=== PATIENT | male | born 1965 | race African-American/Black ===

== ENCOUNTER 2017-02-05 12:15 | Emergency (ER) | payer OTHER ==
[~2017-02-05] VITALS: Ht 180.3 cm; Wt 100.0 kg
[~2017-02-05 12:15] MED LIST: GLUCTES27 SQ; LISI-515 PO; METF1000 PO
[2017-02-05 12:17] VITALS: BP 147/89; PULSE 105; RESP 20; TEMP 99; O2SAT 94
[2017-02-05] MEDS ORDERED: ALUMINUM/MAGNESIUM/SIMETH 30 ML CUP PO ONE (12:45)
[2017-02-05] MEDS ORDERED: LIDOCAINE VISCOUS 2% SOLN 15 ML UDC PO ONE (12:45)
[2017-02-05] MEDS ORDERED: PENICILLIN G BENZATHINE 1,200,000 UNITS/2 ML SYRINGE IM ONE (12:45)
--- NOTE | 2017-02-05 12:57 | PD ---
HPI Chief Complaint: ENT Complaint Time Seen by Provider: 12:25 Travel History International Travel<30 days: No Contact w/Intl Traveler<30days: No Traveled to known affect area: No History of Present Illness HPI 51-year-old male complains of sore throat, cough and hemoptysis. Subjective fever reported. He reports prior episodes of strep throat felt similar. No shortness of breath or chest pain. He reports trace spicules of blood in the sputum. No abdominal pain. No sick contacts at home. Pt reports receiving an influenza shot this morning. PFSH Past Medical History Cardiovascular Problems: Yes Diabetes: Yes Social History Tobacco Use: No Allergies-Medications (Allergen,Severity, Reaction): Coded Allergies: No Known Allergies (Unverified Adverse Reaction, Unknown, 02/05/17) Reported Meds & Prescriptions Reported Meds & Active Scripts Active Elizabeth Contour Next Blood (Glucose Blood) 1 Tamiko Tamiko 1 Units SQ DAILY Lisinopril 20 Mg Tab 20 Mg PO DAILY Metformin (Metformin HCl) 1,000 Mg Tab 1,000 Mg PO BIDPC With meals Review of Systems Except as stated in HPI: all other systems reviewed are Neg General / Constitutional: No: Fever Physical Exam Narrative GENERAL: 51 yo M, pleasant, occasional cough with clear sputum SKIN: Warm and dry. HEAD: Atraumatic. Normocephalic. EYES: Pupils equal and round. No scleral icterus. No injection or drainage. ENT: No nasal bleeding or discharge. Mucous membranes pink and moist. Erythema without asymmetry or deviation of soft palate. NECK: Trachea midline. No JVD. Minimal anterior neck adenopathy. CARDIOVASCULAR: Regular. Rate in 90s. RESPIRATORY: No accessory muscle use. Clear to auscultation. Breath sounds equal bilaterally. GASTROINTESTINAL: Abdomen soft, non-tender, nondistended. Hepatic and splenic margins not palpable. MUSCULOSKELETAL: Extremities without clubbing, cyanosis, or edema. No obvious deformities. NEUROLOGICAL: Awake and alert. No obvious cranial nerve deficits. Motor grossly within normal limits. Five out of 5 muscle strength in the arms and legs. Normal speech. PSYCHIATRIC: Appropriate mood and affect; insight and judgment normal. Data Data Last Documented VS Vital Signs Date Time Temp Pulse Resp B/P (MAP) Pulse Ox O2 Delivery O2 Flow Rate FiO2 02/05/17 12:17 99.0 105 20 147/89 (108) 94 Room Air VS reviewed Orders Orders Penicillin G Benzathine Inj (Bicillin L- (02/05/17 12:45) Al-Mag Hy-Si 40-40-4 Mg/Ml Liq (Mag-Al P (02/05/17 12:45) Lidocaine 2% Viscous (Xylocaine 2% Visco (02/05/17 12:45) Ed Discharge Order (02/05/17 12:58) MDM Medical Decision Making Medical Screen Exam Complete: Yes Emergency Medical Condition: Yes Differential Diagnosis strep pharyngitis, viral pharyngitis, pna, influenza Narrative Course bicillin injection viscous lidocaine return precautions discussed Diagnosis Primary Impression: Pharyngitis Qualified Codes: J02.9 - Acute pharyngitis, unspecified Referrals: Primary Care Physician 2 days Med/Other Pt SpecificInfo: No Change to Meds Disposition: 01 DISCHARGE HOME Condition: Festus Contreras MD Feb 05, 2017 12:57
== END 2017-02-05 13:24 | disposition home or self-care (01) ==
LOC: NEPD 12:15
DX: J02.9 Acute pharyngitis, unspecified (principal); E11.9 Type 2 diabetes mellitus without complications; Z79.84 Long term (current) use of oral hypoglycemic drugs
CPT/HCPCS: 96372; 99282; J0561

== ENCOUNTER 2017-02-07 04:43 | Emergency (ER) | payer OTHER ==
[~2017-02-07] VITALS: Ht 180.3 cm; Wt 102.0 kg
[2017-02-07 04:46] VITALS: BP 155/93; PULSE 90; RESP 16; TEMP 99.4; O2SAT 96
[2017-02-07 04:59] VITALS: BP 145/90; PULSE 83; RESP 16; TEMP 100; O2SAT 97
[2017-02-07] MEDS ORDERED: SODIUM CHLOR 0.9% 1000 ML INJ 1,000 ML IV ONE (05:45)
[2017-02-07] MEDS ORDERED: IBUPROFEN 800 MG TAB PO ONE (05:45)
[2017-02-07 06:02] LABS: AUTOMATED NEUTROPHIL # 6.4 TH/MM3 (1.8-7.7); BASOPHIL # 0.1 TH/MM3 (0-0.2); BASOPHIL % 0.8 % (0.0-2.0); EOSINOPHIL # 0.1 TH/MM3 (0-0.4); EOSINOPHIL % 0.5 % (0.0-4.0); HEMATOCRIT 44.3 % (39.0-51.0); HEMOGLOBIN 14.8 GM/DL (13.0-17.0); LYMPH % 29.7 % (9.0-44.0); LYMPHOCYTE # 3.1 TH/MM3 (1.0-4.8); MEAN CELL VOLUME 88.6 FL (80.0-100.0); MEAN CORPUSCULAR HEMOGLOBIN 29.5 PG (27.0-34.0); MEAN CORPUSCULAR HGB CONC 33.4 % (32.0-36.0); MEAN PLATELET VOLUME 8.9 FL (7.0-11.0); MONO % 8.3 % (0.0-8.0); MONOCYTE # 0.9 TH/MM3 (0-0.9); NEUT % 60.7 % (16.0-70.0); PLATELET COUNT 190 TH/MM3 (150-450); RED CELL DISTRIBUTION WIDTH 13.2 % (11.6-17.2); WHITE BLOOD COUNT 10.5 TH/MM3 (4.0-11.0)
[2017-02-07 06:18] LABS: BICARBONATE 28.9 MEQ/L (21.0-32.0); CALCIUM 8.5 MG/DL (8.5-10.1); CREATININE 0.8 MG/DL (0.60-1.30)
[2017-02-07] MEDS ORDERED: LIDOCAINE VISCOUS 2% SOLN 15 ML UDC SWISH-SWAL STA (06:32)
[2017-02-07] MEDS ORDERED: MAGICADU2 SWISH-SWAL (06:35)
--- NOTE | 2017-02-07 06:41 | PD ---
HPI Chief Complaint: ENT Complaint Time Seen by Provider: 05:36 Travel History International Travel<30 days: No Contact w/Intl Traveler<30days: No Traveled to known affect area: No History of Present Illness HPI 51-year-old black male presents from her apartment with 3-4 day history of fever and chills. He also goes on to state that he was seen in the ER the last 24 hours because of severe sore throat, cough, congestion, bloody sputum, myalgias, arthralgias Gen. malaise. He was given a shot of penicillin and was told to return to the ER if symptoms do not start to improve. He states that his pain is been persistent and he cannot rest. He has had difficulty swallowing. He denies any shortness of breath or wheezing. No nausea vomiting. No abdominal pain. Symptoms are moderate but can be severe. Patient denies any nausea, vomiting or diarrhea. No abdominal pain. PFSH Past Medical History Cardiovascular Problems: Yes Diabetes: Yes Patient Takes Glucophage: Yes (02/05/2017 @ 0900) Hypertension: Yes Tetanus Vaccination: < 5 Years Influenza Vaccination: Yes Past Surgical History Surgical History: No Previous Surgery Social History Alcohol Use: Yes Tobacco Use: Yes Substance Use: No Allergies-Medications (Allergen,Severity, Reaction): Coded Allergies: No Known Allergies (Unverified Adverse Reaction, Unknown, 02/07/17) Reported Meds & Prescriptions Reported Meds & Active Scripts Active Magic Mouthwash Adult Liq (Multi-Ingredient Mouthwash/Gargle) 120 Ml Susp 5 Ml SWISH-SWAL ACHS Each 5mL contains: Nystatin 200,000units, Diphenhydramine 4.25mg, Viscous Lidocaine 10mg, Guzmán syrup 0.8 mL Elizabeth Contour Next Blood Test Strips (Blood Glucose Test Strips) 1 Tamiko Tamiko 1 Units SQ DAILY Lisinopril 20 Mg Tab 20 Mg PO DAILY Metformin (Metformin HCl) 1,000 Mg Tab 1,000 Mg PO BIDPC With meals Review of Systems Except as stated in HPI: all other systems reviewed are Neg Physical Exam Narrative GENERAL: Well-developed, well-nourished in no acute distress. Nontoxic appearing. HEAD: Normocephalic, atraumatic. EYES: Pupils equal round and reactive. Extraocular motions intact. No scleral icterus. No injection or drainage. ENT: TMs clear without erythema. The external auditory canals clear. Nose: clear . Posterior pharynx is erythematous and edematous and moist. No tonsillar edema or exudate. Uvula midline. Airway patent. NECK: Trachea midline.Supple, nontender, moves head freely. No central bony tenderness or spasm. CARDIOVASCULAR: Regular rate and rhythm without murmurs, gallops, or rubs. RESPIRATORY: Clear to auscultation. Breath sounds equal bilaterally. No wheezes , rales, or rhonchi. GASTROINTESTINAL: Abdomen soft, non-tender, nondistended. No hepato-splenomegaly , or palpable masses. No guarding. EXTREMITIES: No clubbing, cyanosis, or edema. No joint tenderness, effusion, or edema noted. BACK: Nontender without deformity or crepitance. No flank tenderness. Data Data Last Documented VS Vital Signs Date Time Temp Pulse Resp B/P (MAP) Pulse Ox O2 Delivery O2 Flow Rate FiO2 02/07/17 04:59 100.0 83 16 145/90 (108) 97 Room Air Orders Orders Complete Blood Count With Diff (02/07/17 05:39) Basic Metabolic Panel (Bmp) (02/07/17 05:39) Chest, Pa & Lat (02/07/17 05:39) Iv Access Insert/Monitor (02/07/17 05:39) Sodium Chlor 0.9% 1000 Ml Inj (Ns 1000 M (02/07/17 05:45) Ibuprofen (Motrin) (02/07/17 05:45) Acetaminophen (Tylenol) (02/07/17 06:45) Lidocaine 2% Viscous (Xylocaine 2% Visco (02/07/17 06:32) Al-Mag Hy-Si 40-40-4 Mg/Ml Liq (Mag-Al P (02/07/17 06:45) Ed Discharge Order (02/07/17 06:33) Labs Laboratory Tests Test 02/07/17 05:50 White Blood Count 10.5 TH/MM3 Red Blood Count 5.00 MIL/MM3 Hemoglobin 14.8 GM/DL Hematocrit 44.3 % Mean Corpuscular Volume 88.6 FL Mean Corpuscular Hemoglobin 29.5 PG Mean Corpuscular Hemoglobin Concent 33.4 % Red Cell Distribution Width 13.2 % Platelet Count 190 TH/MM3 Mean Platelet Volume 8.9 FL Neutrophils (%) (Auto) 60.7 % Lymphocytes (%) (Auto) 29.7 % Monocytes (%) (Auto) 8.3 % Eosinophils (%) (Auto) 0.5 % Basophils (%) (Auto) 0.8 % Neutrophils # (Auto) 6.4 TH/MM3 Lymphocytes # (Auto) 3.1 TH/MM3 Monocytes # (Auto) 0.9 TH/MM3 Eosinophils # (Auto) 0.1 TH/MM3 Basophils # (Auto) 0.1 TH/MM3 CBC Comment DIFF FINAL Differential Comment Blood Urea Nitrogen 10 MG/DL Creatinine 0.80 MG/DL Random Glucose 211 MG/DL Calcium Level 8.5 MG/DL Sodium Level 141 MEQ/L Potassium Level 3.2 MEQ/L Chloride Level 104 MEQ/L Carbon Dioxide Level 28.9 MEQ/L Anion Gap 8 MEQ/L Estimat Glomerular Filtration Rate 123 ML/MIN MDM Medical Decision Making Medical Screen Exam Complete: Yes Emergency Medical Condition: Yes Medical Record Reviewed: Yes Interpretation(s) Chest x-ray: Negative for acute infiltrate. CBC & BMP Diagram 02/07/17 05:50 Calcium Level 8.5 Laboratory Tests Test 02/07/17 05:50 Monocytes (%) (Auto) 8.3 % (0.0-8.0) Random Glucose 211 MG/DL (74-106) Potassium Level 3.2 MEQ/L (3.5-5.1) Differential Diagnosis MDM: High Differential diagnoses: Strep throat, viral pharyngitis, mono, peritonsillar abscess, bronchitis, pneumonia Narrative Course IV access is obtained. Patient given a liter bolus of saline. Motrin 800 mg by mouth. CBC, chemistry and chest x-ray. Patient's laboratory test 7 reviewed. White count is normal. No anemia. He has a potassium 3.2. X-ray shows no infiltrate. Patient's given an additional gram of Tylenol and some Magic mouthwash at discharge. This is acute pharyngitis, bronchitis Diagnosis Primary Impression: Pharyngitis Qualified Codes: J02.9 - Acute pharyngitis, unspecified Additional Impression: bronchitis Patient Instructions: General Instructions Departure Forms: Tests/Procedures, Work Release Special Instructions: No work 5 days. Additional Instructions: Rest. Force fluids. Saltwater gargles. Tylenol and Advil. Chloraseptic [place] Cepastat lozenge. Magic mouthwash. Follow-up with a primary care doctor in 3-5 days. Return to the ER if any problems. Med/Other Pt SpecificInfo: Prescription(s) given Scripts Gjmdunjn-Irtdvkgpbspjrvo-Efqlvuxnm Liq (Magic Mouthwash Adult Liq) 120 Ml Susp 5 ML SWISH-SWAL ACHS for Mouth sores, #120 ML 1 Refill Each 5mL contains: Nystatin 200,000units, Diphenhydramine 4.25mg, Viscous Lidocaine 10mg, Guzmán syrup 0.8 mL Prov: Bo Oswald MD 02/07/17 Disposition: 01 DISCHARGE HOME Condition: Stable Wayne Bergeron Feb 07, 2017 06:41
[2017-02-07] MEDS ORDERED: ALUMINUM/MAGNESIUM/SIMETH 30 ML CUP PO ONE (06:45)
[2017-02-07] MEDS ORDERED: ACETAMINOPHEN 500 MG CPLT PO ONE (06:45)
--- NOTE | 2017-02-07 06:55 | RADRPT ---
EXAM DATE/TIME: 02/07/2017 06:06 [facility] COMPARISON: No previous studies available for comparison. INDICATIONS : Cold and flu symptoms. MEDICAL HISTORY : None. SURGICAL HISTORY : None. ENCOUNTER: Initial ACUITY: 4 - 6 days PAIN SCORE: 0/10 LOCATION: Bilateral chest FINDINGS: PA and lateral views of the chest demonstrate the lungs to be symmetrically aerated without evidence of mass, infiltrate or effusion. The cardiomediastinal contours are unremarkable. Osseous structure s are intact. CONCLUSION: Normal examination. Mike Lopez Jr., MD on February 07, 2017 at 6:54 Board Certified Radiologist. This report was verified electronically.
== END 2017-02-07 06:49 | disposition home or self-care (01) ==
LOC: NEPD 04:43
DX: J40 Bronchitis, not specified as acute or chronic (principal); E11.9 Type 2 diabetes mellitus without complications; I10 Essential (primary) hypertension; Z72.0 Tobacco use; Z79.899 Other long term (current) drug therapy
CPT/HCPCS: 71046; 80048; 85025; 96360; 99285; J7030

== ENCOUNTER 2017-03-04 07:17 | Emergency (ER) | payer OTHER ==
[~2017-03-04] VITALS: Ht 177.8 cm; Wt 100.0 kg
[~2017-03-04 07:17] MED LIST changes: +MAGICADU2 SWISH-SWAL
[2017-03-04 07:19] VITALS: BP 136/85; PULSE 119; RESP 14; TEMP 101.4; O2SAT 98
[2017-03-04] MEDS ORDERED: METF1000 PO (07:25)
[2017-03-04] MEDS ORDERED: IBUPROFEN 800 MG TAB PO ONE (08:00)
--- NOTE | 2017-03-04 08:39 | PD ---
HPI Chief Complaint: Cold / Flu Symptoms Time Seen by Provider: 07:46 Travel History International Travel<30 days: No Contact w/Intl Traveler<30days: No Traveled to known affect area: No History of Present Illness HPI 51-year-old male presents to the emergency Department with complaint of nasal congestion, cough, body aches, headache, vomiting, diarrhea, fever since yesterday. Patient's temperature in the emergency department is 101.4. Last vomited approximately 6 AM and has had fluids without vomiting since. Reports chest pain with coughing only. Otherwise denies chest pain while at rest. Denies shortness of breath or wheezing. Denies ear pain, sore throat. Denies abdominal pain. has similar symptoms. Has not taken any medications or tried treatments to alleviate his symptoms. No known aggravating or relieving factors. No known allergies. No primary care provider. History of hypertension and diabetes and takes metformin. Has no other medical complaints. No other modifying factors or associated signs and symptoms. PFSH Past Medical History Cardiovascular Problems: Yes Diabetes: Yes Patient Takes Glucophage: Yes Hypertension: Yes Past Surgical History Surgical History: No Previous Surgery Social History Alcohol Use: Yes (monthly) Tobacco Use: Yes Substance Use: No Allergies-Medications (Allergen,Severity, Reaction): Coded Allergies: No Known Allergies (Unverified Adverse Reaction, Unknown, 03/04/17) Reported Meds & Prescriptions Reported Meds & Active Scripts Active Ibuprofen 800 Mg Tab 800 Mg PO Q6HR PRN Tamiflu (Oseltamivir Phosphate) 75 Mg Cap 75 Mg PO BID 5 Days Zofran Odt (Ondansetron Odt) 4 Mg Tab 4 Mg SL Q8HR PRN Elizabeth Contour Next Blood Test Strips (Blood Glucose Test Strips) 1 Tamiko Tamiko 1 Units SQ DAILY Lisinopril 20 Mg Tab 20 Mg PO DAILY Reported Metformin (Metformin HCl) 1,000 Mg Tab 1,000 Mg PO DAILY With a meal Review of Systems Except as stated in HPI: all other systems reviewed are Neg Physical Exam Narrative GENERAL: Well-nourished, well-developed black male patient, in no acute distress ; fever 101.4, nontoxic-appearing SKIN: Warm and dry. No rash. HEAD: Atraumatic. Normocephalic. EYES: Pupils equal and round. No scleral icterus. No injection or drainage. ENT: Mucosa pink and moist. No erythema or exudates. No uvular edema. No uvular , palatal, or tonsillar deviation. Airway patent. EARS: Bilateral pinnae and external canals appear within normal limits. Bilateral tympanic membranes without erythema, dullness or perforation. NECK: Trachea midline. No lymphadenopathy. CARDIOVASCULAR: Regular rate and rhythm. No murmur appreciated. RESPIRATORY: No accessory muscle use. Clear to auscultation. Breath sounds equal bilaterally. No retractions or tachypnea. GASTROINTESTINAL: Abdomen soft, non-tender, nondistended. Hepatic and splenic margins not palpable. Bowel sounds are active 4 quadrants. MUSCULOSKELETAL: No obvious deformities. No clubbing. No cyanosis. No edema. NEUROLOGICAL: Awake and alert. Oriented 3. No obvious cranial nerve deficits. Motor grossly within normal limits. Normal speech. Moves all extremities. 5/5 strength to all extremities. PSYCHIATRIC: Appropriate mood and affect; insight and judgment normal. Data Data Last Documented VS Vital Signs Date Time Temp Pulse Resp B/P (MAP) Pulse Ox O2 Delivery O2 Flow Rate FiO2 03/04/17 09:40 03/04/17 07:19 101.4 119 14 98 Orders Orders Influenzae A/B Antigen (03/04/17 07:47) Ibuprofen (Motrin) (03/04/17 08:00) Ed Discharge Order (03/04/17 08:56) MDM Medical Decision Making Medical Screen Exam Complete: Yes Emergency Medical Condition: Yes Medical Record Reviewed: Yes Differential Diagnosis Influenza, gastroenteritis, viral illness, upper respiratory infection Narrative Course 51-year-old male with cold/flu symptoms since yesterday. Patient has fever of 101.4 in the ER. He is nontoxic-appearing. He has had vomiting and diarrhea. Physical exam is unremarkable. Ibuprofen, influenza ordered. Patient given Gatorade by mouth challenge. Influenza A positive. Tamiflu, ibuprofen, Zofran prescribed for home. Discussed viral illness and symptom management. Instructed patient to follow up with primary care provider. Patient verbalizes understanding and agreement with treatment plan. Patient is medically cleared and stable for discharge. Discussed reasons to return to the emergency department. Patient agrees with treatment plan. The patients vital signs are stable and the patient is stable for outpatient follow-up and treatment. Patient discharged home, stable and in no acute distress. Diagnosis Primary Impression: Influenza A Referrals: [facility] Primary Care Physician Patient Instructions: General Instructions, Influenza (ED), Safe Use of Cough and Cold Medicines (ED) Departure Forms: Tests/Procedures, Work Release Special Instructions: No work until fever free for 24 hours Additional Instructions: Ibuprofen or Tylenol as directed and as needed to reduce fever; may alternate ibuprofen and Tylenol as needed every 3 hours to minimize fever [id number] cold/flu medications as directed and as needed for symptom management Get plenty of sleep/rest Take Zofran as prescribed for nausea/vomiting Increase fluid intake, starting with clear fluids; advancing to a bland diet as tolerated [place] diet to include crackers, rice, toast, bananas as tolerated, advancing slowly to regular diet Drink plenty of fluids to prevent dehydration; such as Gatorade, Powerade, Pedialyte [place] diet to encourage nutrition such as crackers, fruit, applesauce, toast, soup etc. Use an air humidifier/turn off ceiling fans Follow-up with your primary care provider within 1 day Return immediately to the emergency department with worsening of symptoms Med/Other Pt SpecificInfo: Prescription(s) given Scripts Ibuprofen (Ibuprofen) 800 Mg Tab 800 MG PO Q6HR Y for PAIN, #30 TAB 0 Refills Prov: Paola Samuels 03/04/17 Oseltamivir (Tamiflu) 75 Mg Cap 75 MG PO BID for Mgmt Viral Infection for 5 Days, #10 CAP 0 Refills Prov: Paola Samuels 03/04/17 Ondansetron Odt (Zofran Odt) 4 Mg Tab 4 MG SL Q8HR Y for Nausea/Vomiting, #6 TAB 0 Refills Prov: Paola Sameuls 03/04/17 Disposition: 01 DISCHARGE HOME Condition: Stable Paola Samuels Mar 04, 2017 08:38
[2017-03-04] MEDS ORDERED: IBUP1TAB7 PO (08:55)
[2017-03-04] MEDS ORDERED: ZOFR4TAB3 SL (08:55)
[2017-03-04] MEDS ORDERED: OSEL75 PO (08:55)
[2017-03-04 09:40] VITALS: BP 133/77
== END 2017-03-04 09:40 | disposition home or self-care (01) ==
LOC: NEPD 07:17
DX: J09.X2 Influenza due to identified novel influenza A virus with other respiratory manifestations (principal); R11.10 Vomiting, unspecified; R19.7 Diarrhea, unspecified; E11.9 Type 2 diabetes mellitus without complications; I10 Essential (primary) hypertension; Z72.0 Tobacco use; Z79.899 Other long term (current) drug therapy
CPT/HCPCS: 87804; 99284

== ENCOUNTER 2017-03-21 15:49 | Emergency (ER) | payer OTHER ==
[~2017-03-21 15:49] MED LIST changes: +IBUP1TAB7 PO; -MAGICADU2 SWISH-SWAL; +OSEL75 PO; +ZOFR4TAB3 SL
[2017-03-21 15:51] VITALS: BP 162/97; PULSE 84; RESP 14; TEMP 98.2; O2SAT 99
[2017-03-21] MEDS ORDERED: LISI-515 PO (16:26)
[2017-03-21] MEDS ORDERED: METF1000 PO (16:26)
--- NOTE | 2017-03-21 16:28 | PD ---
HPI Chief Complaint: Medication Refill Request Time Seen by Provider: 16:22 Travel History International Travel<30 days: No Contact w/Intl Traveler<30days: No Traveled to known affect area: No History of Present Illness HPI 50-year-old male history of diabetes and hypertension presents requesting medication refill. He reports that he ran out of his lisinopril and metformin 3 days ago and today's blood sugar was elevated in the 200s. Symptoms are mild , aggravated by running out of his medication, alleviated by taking his medication. He reports that he has an appointment with a new primary care physician tomorrow but he does not recall the name of this physician. He has no other complaints at this time. PFSH Past Medical History Cardiovascular Problems: Yes Diabetes: Yes Hypertension: Yes Social History Alcohol Use: Yes (monthly) Tobacco Use: Yes Substance Use: No Allergies-Medications (Allergen,Severity, Reaction): Coded Allergies: No Known Allergies (Unverified Adverse Reaction, Unknown, 03/04/17) Reported Meds & Prescriptions Reported Meds & Active Scripts Active Lisinopril 20 Mg Tab 20 Mg PO DAILY Metformin (Metformin HCl) 1,000 Mg Tab 1,000 Mg PO DAILY With a meal Ibuprofen 800 Mg Tab 800 Mg PO Q6HR PRN Tamiflu (Oseltamivir Phosphate) 75 Mg Cap 75 Mg PO BID 5 Days Zofran Odt (Ondansetron Odt) 4 Mg Tab 4 Mg SL Q8HR PRN Elizabeth Contour Next Blood Test Strips (Blood Glucose Test Strips) 1 Tamiko Tamiko 1 Units SQ DAILY Lisinopril 20 Mg Tab 20 Mg PO DAILY Reported Metformin (Metformin HCl) 1,000 Mg Tab 1,000 Mg PO DAILY With a meal Review of Systems General / Constitutional: No: Fever, Chills Eyes: No: Blurred Vision, Pain HENT: No: Headaches, Vertigo, Lightheadedness Cardiovascular: No: Chest Pain or Discomfort Respiratory: No: Shortness of Breath Physical Exam Narrative GENERAL: Well-nourished male in no acute distress SKIN: Warm and dry. HEAD: Atraumatic. Normocephalic. EYES: Pupils equal and round. No scleral icterus. No injection or drainage. ENT: No nasal bleeding or discharge. Mucous membranes pink and moist. NECK: Trachea midline. No JVD. CARDIOVASCULAR: Regular rate and rhythm. No murmur appreciated. RESPIRATORY: No accessory muscle use. Clear to auscultation. Breath sounds equal bilaterally. GASTROINTESTINAL: Abdomen soft, non-tender, nondistended. Hepatic and splenic margins not palpable. MUSCULOSKELETAL: No obvious deformities. No clubbing. No cyanosis. No edema. NEUROLOGICAL: Awake and alert. No obvious cranial nerve deficits. Motor grossly within normal limits. Normal speech. Data Data Last Documented VS Vital Signs Date Time Temp Pulse Resp B/P (MAP) Pulse Ox O2 Delivery O2 Flow Rate FiO2 03/21/17 15:51 98.2 84 14 162/97 (118) 99 Orders Orders Blood Glucose (03/21/17 16:05) MDM Medical Decision Making Medical Screen Exam Complete: Yes Emergency Medical Condition: Yes Medical Record Reviewed: Yes Differential Diagnosis Medication refill, hyperglycemia, hypertension Narrative Course The patient will be given a short refill of his metformin lisinopril. Stable for discharge. Diagnosis Primary Impression: Medication refill Additional Instructions: Follow-up with your new physician tomorrow as scheduled. Return for any emergent medical conditions. Med/Other Pt SpecificInfo: Prescription(s) given Scripts Lisinopril (Lisinopril) 20 Mg Tab 20 MG PO DAILY, #30 TAB 0 Refills Prov: Gregory Barraza MD 03/21/17 Metformin (Metformin) 1,000 Mg Tab 1000 MG PO DAILY for Blood Sugar Management, #30 TAB 0 Refills With a meal Prov: Gregory Barraza MD 03/21/17 Disposition: 01 DISCHARGE HOME Condition: Stable Carroll Murphy Mar 21, 2017 16:28
== END 2017-03-21 16:55 | disposition home or self-care (01) ==
LOC: NEPK 15:49
DX: Z76.0 Encounter for issue of repeat prescription (principal); I10 Essential (primary) hypertension; E11.9 Type 2 diabetes mellitus without complications; Z72.0 Tobacco use
CPT/HCPCS: 99281

== ENCOUNTER 2017-04-12 19:31 | Emergency (ER) | payer OTHER ==
[2017-04-12 19:45] VITALS: BP 140/95; PULSE 101; RESP 16; TEMP 98.5; O2SAT 97
[2017-04-12] MEDS ORDERED: CEPH-460 PO (22:14)
[2017-04-12] MEDS ORDERED: TETANUS/DIPHTHERIA TOXOID ADULT 0.5 ML VIAL IM ONE (22:15)
--- NOTE | 2017-04-12 22:15 | PD ---
HPI Chief Complaint: Laceration/Skin Injury Time Seen by Provider: 22:09 Travel History International Travel<30 days: No Contact w/Intl Traveler<30days: No Traveled to known affect area: No History of Present Illness HPI 51-year-old male presents to the emergency department for evaluation after he got a screw stuck underneath his left third nail. Patient states he is diabetic and needs a tetanus vaccine. Patient currently rates the pain 3.5 out of 10, aching and throbbing, without radiation. No exacerbating or alleviating factors. Patient denies any other symptoms or complaints. Mild severity. PFSH Past Medical History Cardiovascular Problems: Yes Diabetes: Yes Hypertension: Yes Social History Alcohol Use: Yes (monthly) Tobacco Use: Yes Substance Use: No Allergies-Medications (Allergen,Severity, Reaction): Coded Allergies: No Known Allergies (Unverified Adverse Reaction, Unknown, 03/21/17) Reported Meds & Prescriptions Reported Meds & Active Scripts Active Lisinopril 20 Mg Tab 20 Mg PO DAILY Metformin (Metformin HCl) 1,000 Mg Tab 1,000 Mg PO DAILY With a meal Ibuprofen 800 Mg Tab 800 Mg PO Q6HR PRN Tamiflu (Oseltamivir Phosphate) 75 Mg Cap 75 Mg PO BID 5 Days Zofran Odt (Ondansetron Odt) 4 Mg Tab 4 Mg SL Q8HR PRN Elizabeth Contour Next Blood Test Strips (Blood Glucose Test Strips) 1 Tamiko Tamiko 1 Units SQ DAILY Lisinopril 20 Mg Tab 20 Mg PO DAILY Reported Metformin (Metformin HCl) 1,000 Mg Tab 1,000 Mg PO DAILY With a meal Review of Systems Except as stated in HPI: all other systems reviewed are Neg Physical Exam Narrative GENERAL: Well-nourished, well-developed male patient, afebrile. SKIN: Focused skin assessment warm/dry. HEAD: Normocephalic. Atraumatic. EYES: No scleral icterus. No injection or drainage. NECK: Supple, trachea midline. No JVD or lymphadenopathy. CARDIOVASCULAR: Regular rate and rhythm without murmurs, gallops, or rubs. RESPIRATORY: Breath sounds equal bilaterally. No accessory muscle use. Lungs sounds are clear to auscultation. GASTROINTESTINAL: Abdomen soft, non-tender, nondistended. MUSCULOSKELETAL: No cyanosis, or edema. Data Data Last Documented VS Vital Signs Date Time Temp Pulse Resp B/P (MAP) Pulse Ox O2 Delivery O2 Flow Rate FiO2 04/12/17 19:45 98.5 101 16 140/95 (110) 97 Orders Orders Tetanus/Diphtheria Tox Adult (Tetanus/Di (04/12/17 22:15) MDM Medical Decision Making Medical Screen Exam Complete: Yes Emergency Medical Condition: Yes Medical Record Reviewed: Yes Differential Diagnosis Puncture wound versus abrasion versus laceration Narrative Course 51-year-old male presents to the emergency department for evaluation after he got a screw got stuck underneath his left third nail. He is requesting a tetanus vaccine. This is given. He'll be discharged short-term prescription for Keflex to prevent infection. He verbalizes agreement and understanding. The patient was discharged in stable condition with instructions, including return instructions and follow up instructions. Diagnosis Primary Impression: Puncture wound of finger Qualified Codes: S61.239A - Puncture wound without foreign body of unspecified finger without damage to nail, initial encounter Referrals: Primary Care Physician as needed Patient Instructions: General Instructions, Puncture Wound (ED) Additional Instructions: Clean area twice daily with soap and water. Take antibiotic as directed until gone. Follow-up with your primary care physician. Return to the emergency department for any acute worsening of symptoms. Med/Other Pt SpecificInfo: Prescription(s) given Scripts Cephalexin (Keflex) 500 Mg Capsule 500 MG PO TID for Infection for 7 Days, CAP 0 Refills Prov: Hermelinda Cao 04/12/17 Disposition: 01 DISCHARGE HOME Condition: Stable Hermelinda Cao Apr 12, 2017 22:15
== END 2017-04-12 22:33 | disposition home or self-care (01) ==
LOC: NEPK 19:31
DX: S61.233A Puncture wound without foreign body of left middle finger without damage to nail, initial encounter (principal); E11.9 Type 2 diabetes mellitus without complications; I10 Essential (primary) hypertension; W26.8XXA Contact with other sharp object(s), not elsewhere classified, initial encounter; Z23 Encounter for immunization; Z72.0 Tobacco use; Z79.84 Long term (current) use of oral hypoglycemic drugs
CPT/HCPCS: 90471; 90714

== ENCOUNTER 2017-07-15 09:16 | Emergency (ER) | payer OTHER ==
[~2017-07-15] VITALS: Ht 180.3 cm; Wt 100.0 kg
[~2017-07-15 09:16] MED LIST changes: +CEPH-460 PO
[2017-07-15 09:20] VITALS: BP 121/70; PULSE 62; RESP 16; TEMP 98.1; O2SAT 99
[2017-07-15] MEDS ORDERED: ORPHENADRINE INJ 60 MG/2 ML AMP IM ONE (10:00)
[2017-07-15] MEDS ORDERED: KETOROLAC TROMETHAMINE 60 MG/2 ML (IM) VIAL IM ONE (10:00)
--- NOTE | 2017-07-15 10:48 | RADRPT ---
EXAM DATE: 07/15/2017 10:40 AM EDT AGE/SEX: 52 years / Male INDICATIONS: Right side neck pain post fall. CLINICAL DATA: This is the patient's initial encounter. Patient reports that signs and symptoms have been present for 1 day and indicates a pain score of 10/10. MEDICAL/SURGICAL HISTORY: None. None. COMPARISON: No prior exams available for comparison. FINDINGS: No appreciable subluxation or soft tissue swelling is seen. Degenerative spondylosis is pr esent at C5-6 and C6-7 to a significant degree, slight degree C3-4 and C4-5. CONCLUSION: Degenerative spondylosis. Electronically signed by: Peace Emerson MD 07/15/2017 10:47 AM EDT
--- NOTE | 2017-07-15 10:49 | RADRPT ---
EXAM DATE: 07/15/2017 10:37 AM EDT AGE/SEX: 52 years / Male INDICATIONS: Left side back pain post fall. CLINICAL DATA: This is the patient's initial encounter. Patient reports that signs and symptoms have been present for 1 day and indicates a pain score of 10/10. MEDICAL/SURGICAL HISTORY: None. None. COMPARISON: No prior exams available for comparison. FINDINGS: No appreciable compression deformities, spondylolisthesis, or spondylolysis is seen. Moder ate degenerative changes are seen within the disc space and facets at L4-5 and L5-S1 worse at L5-S1 w ith significant facet arthrosis at this level. Chronic atherosclerotic calcifications are seen withou t any definite aneurysmal dilatations for technique. CONCLUSION: Chronic changes. Electronically signed by: Peace Emerson MD 07/15/2017 10:48 AM EDT
--- NOTE | 2017-07-15 10:49 | RADRPT ---
EXAM DATE: 07/15/2017 10:35 AM EDT AGE/SEX: 52 years / Male INDICATIONS: Right hand pain post fall. CLINICAL DATA: This is the patient's initial encounter. Patient reports that signs and symptoms have been present for 1 day and indicates a pain score of 10/10. MEDICAL/SURGICAL HISTORY: None. None. COMPARISON: No prior exams available for comparison. FINDINGS: No definite fractures, or dislocations are identified. No definite lytic or sclerotic les ion is seen. CONCLUSION: Unremarkable study. Electronically signed by: Peace Emerson MD 07/15/2017 10:48 AM EDT
--- NOTE | 2017-07-15 11:20 | PD ---
HPI Chief Complaint: Pain: Acute or Chronic Time Seen by Provider: 09:42 Travel History International Travel<30 days: No Contact w/Intl Traveler<30days: No Traveled to known affect area: No History of Present Illness HPI 52-year-old -[place] male brought in status post fall at a local store. Patient states he slipped on the dirt. He fell backwards landing on his right hand, causing pain to the right hand, right side of his neck, and lower back. There is no open wounds or abrasions. Patient denies hitting his head or loss of consciousness. Pain is worsened since falling. He has history of chronic low back pain. Pain is currently 8 out of 10. He denies numbness or tingling. No headache or dizziness. No vomiting. No abdominal pain. No chest pain or shortness of breath. This was not a syncopal event. Patient has no known drug allergies. PFSH Past Medical History Cardiovascular Problems: Yes Diabetes: Yes Hypertension: Yes Social History Alcohol Use: Yes (monthly) Tobacco Use: Yes Substance Use: No Allergies-Medications (Allergen,Severity, Reaction): Coded Allergies: No Known Allergies (Unverified Adverse Reaction, Unknown, 07/15/17) Reported Meds & Prescriptions Reported Meds & Active Scripts Active Lisinopril 20 Mg Tab 20 Mg PO DAILY Reported Metformin (Metformin HCl) 1,000 Mg Tab 1,000 Mg PO DAILY With a meal Review of Systems Except as stated in HPI: all other systems reviewed are Neg General / Constitutional: No: Fever Eyes: No: Visual changes HENT: No: Headaches Cardiovascular: No: Chest Pain or Discomfort Respiratory: No: Shortness of Breath Gastrointestinal: No: Abdominal Pain Genitourinary: No: Dysuria Musculoskeletal: Positive: Myalgias, Arthralgias, Limited ROM, Pain Skin: No Rash Neurologic: No: Weakness Psychiatric: No: Depression Endocrine: No: Polydipsia Hematologic/Lymphatic: No: Easy Bruising Physical Exam Narrative GENERAL: Patient appears in mild to moderate distress. SKIN: Warm and dry. Normal color. Normal turgor. No abrasions or open wounds. No ecchymosis. HEAD: Atraumatic. Normocephalic. Nontender. EYES: Pupils equal and round. No scleral icterus. No injection or drainage. ENT: No nasal bleeding or discharge. Mucous membranes pink and moist. No dental injury. Pharynx is clear. Airways patent. NECK: Trachea midline. No bony tenderness or step-off. Patient has soft tissue tenderness along the right paraspinous muscles CARDIOVASCULAR: Regular rate and rhythm. RESPIRATORY: No accessory muscle use. Clear to auscultation. Breath sounds equal bilaterally. GASTROINTESTINAL: Abdomen soft, non-tender, nondistended. Hepatic and splenic margins not palpable. MUSCULOSKELETAL: Extremities without clubbing, cyanosis, or edema. No obvious deformities. Patient has pain along the right lateral hand and fourth and fifth knuckles. No obvious deformity. Compliance Reviewer strength is reduced secondary to pain. Neurovascular exam is normal. Patient has tenderness with palpation along the right lower lumbar spine. No bony tenderness. Negative straight leg raise pain bilaterally. No loss of function. NEUROLOGICAL: Awake and alert. No obvious cranial nerve deficits. Motor grossly within normal limits. Five out of 5 muscle strength in the arms and legs. Normal speech. PSYCHIATRIC: Appropriate mood and affect; insight and judgment normal. Data Data Last Documented VS Vital Signs Date Time Temp Pulse Resp B/P (MAP) Pulse Ox O2 Delivery O2 Flow Rate FiO2 07/15/17 09:20 98.1 62 16 121/70 (87) 99 Orders Orders Hand, Complete ([id number]) (07/15/17 09:49) Ice/Cold Pack (07/15/17 09:49) Spine, Cervical - Ltd (Ap&Lat) (07/15/17 09:49) Spine, Lumbar - Ltd (Ap & Lat) (07/15/17 09:49) Ketorolac Inj (Toradol Inj) (07/15/17 10:00) Orphenadrine Inj (Norflex Inj) (07/15/17 10:00) Ed Discharge Order (07/15/17 11:13) [facility] Medical Decision Making Medical Screen Exam Complete: Yes Emergency Medical Condition: Yes Differential Diagnosis Slip and fall. Right hand contusion. Fracture. Next strain. Lumbar strain. Fracture. Narrative Course Patient is given Toradol 60 mg IM. Patient is given 60 mg Norflex IM. X-rays of the right hand, cervical spine, and lumbar spine are ordered. X-ray show no acute process. Patient will be discharged home on ibuprofen 600 mg 4 times daily #40. Patient also given Flexeril 10 mg up to 3 times daily #15. Patient can take extra strength Tylenol in addition to the above. Patient should use heat followed by ice and gentle stretching and follow-up as needed. Diagnosis Primary Impression: Fall Qualified Codes: W19.XXXA - Unspecified fall, initial encounter Additional Impressions: Cervical myofascial strain Qualified Codes: S16.1XXA - Strain of muscle, fascia and tendon at neck level , initial encounter Acute lumbar myofascial strain Qualified Codes: S39.012A - Strain of muscle, fascia and tendon of lower back , initial encounter Contusion of right hand, initial encounter Patient Instructions: Cervical Neck Strain Exercises (GEN), Cervical Strain (ED ), Contusion in Adults (ED), General Instructions, Low Back Strain (ED), Lower Back Exercises (ED) Additional Instructions: Patient is given Toradol 60 mg IM. Patient is given 60 mg Norflex IM. X-rays of the right hand, cervical spine, and lumbar spine are ordered. X-ray show no acute process. Patient will be discharged home on ibuprofen 600 mg 4 times daily #40. Patient also given Flexeril 10 mg up to 3 times daily #15. Patient can take extra strength Tylenol in addition to the above. Patient should use heat followed by ice and gentle stretching and follow-up as needed. Med/Other Pt SpecificInfo: Prescription(s) given Disposition: 01 DISCHARGE HOME Condition: Stable Jayme Barber Jul 15, 2017 11:20
[2017-07-15] MEDS ORDERED: IBUP-232 PO (11:21)
[2017-07-15] MEDS ORDERED: CYCL10TA PO (11:21)
[2017-07-15 11:49] VITALS: RESP 20
== END 2017-07-15 11:50 | disposition home or self-care (01) ==
LOC: NEPD 09:16
DX: S16.1XXA Strain of muscle, fascia and tendon at neck level, initial encounter (principal); S39.012A Strain of muscle, fascia and tendon of lower back, initial encounter; S60.221A Contusion of right hand, initial encounter; E11.9 Type 2 diabetes mellitus without complications; I10 Essential (primary) hypertension; W01.0XXA Fall on same level from slipping, tripping and stumbling without subsequent striking against object, initial encounter; Z72.0 Tobacco use; Z79.84 Long term (current) use of oral hypoglycemic drugs
CPT/HCPCS: 72040; 72100; 73130; 96372; 99284; J1885; J2360